=== PATIENT | female | born 1975 | race Caucasian/White ===

== ENCOUNTER → 2019-04-18 | Outpatient (REF) | payer OTHER | LOC: M LAB REF 12:50 | PROVIDERS: ATTEND Nurse Practitioner Adult Health | DX: N39.0 Urinary tract infection, site not specified (principal) ==

== ENCOUNTER 2021-11-30 15:31 | Emergency (ER) | payer OTHER ==
[~2021-11-30] VITALS: Ht 170.2 cm; Wt 97.7 kg
[2021-11-30] MEDS ORDERED: VALS40TA9 (15:54)
[2021-11-30] MEDS ORDERED: AUGMENTIN 875 MG TAB PO ONE (21:10)
[2021-11-30] MEDS ORDERED: RABIES VACCINE HUMAN 2.5 INTERNATIONAL UNITS/ML VIAL (90675) IM ONE (21:10)
[2021-11-30] MEDS ORDERED: NEOSPORIN OINT 0.9 GM PKT TOP ONE (21:10)
[2021-11-30] MEDS ORDERED: AMOX875T2 PO (21:17)
[2021-11-30 21:34] VITALS: BP 142/92
== END 2021-11-30 21:46 | disposition home or self-care (01) ==
LOC: M ED 15:31
DX: Z20.3 Contact with and (suspected) exposure to rabies (principal); Z23 Encounter for immunization; S51.852A Open bite of left forearm, initial encounter; W54.0XXA Bitten by dog, initial encounter; Y99.0 Civilian activity done for income or pay; I10 Essential (primary) hypertension

== ENCOUNTER 2024-01-10 19:41 | Emergency (ER) | payer OTHER ==
[~2024-01-10] VITALS: Ht 165.1 cm; Wt 107.5 kg
[~2024-01-10 19:41] MED LIST: AMOX875T2 PO; VALS40TA9
[2024-01-10] MEDS ORDERED: CETI-24 PO (20:03)
[2024-01-10 22:42] VITALS: TEMP 97.5
[2024-01-11 02:13] VITALS: BP 172/81; O2SAT 95
[2024-01-11] MEDS: ACETAMINOPHEN 325 MG TAB PO ONE (02:13)
[2024-01-11] MEDS: KETOROLAC 60MG 2ML VIAL IM ONE (02:51)
== END 2024-01-11 03:08 | disposition home or self-care (01) ==
LOC: M ED 19:41
DX: S06.0X0A Concussion without loss of consciousness, initial encounter (principal); W19.XXXA Unspecified fall, initial encounter; Y92.89 Other specified places as the place of occurrence of the external cause; Y93.75 Activity, martial arts; Y99.9 Unspecified external cause status; I10 Essential (primary) hypertension; Z79.899 Other long term (current) drug therapy
CPT/HCPCS: 70450; 96372; 99284; J1885